=== PATIENT | male | born 1970 | race Caucasian/White ===

== ENCOUNTER → 2021-12-30 | Outpatient (CLI) | payer OTHER ==
[~2021-12-30] MED LIST: ALLO100 PO; ALLO300 PO; LISHYD2025 PO; LISI5 PO; Lovastatin20 MG PO; OXYACE5T PO
== END | disposition home or self-care (01) ==
LOC: LAB SHORT 11:12 → PLD 11:12
DX: L30.8 Other specified dermatitis (principal)
CPT/HCPCS: 88305; 88312

== ENCOUNTER 2022-02-26 07:49 | Day surgery (SDC) | payer OTHER ==
[2022-02-26] MEDS ORDERED: LISI20 PO (08:41)
[2022-02-26] MEDS ORDERED: DOXYCYCLINE HY100 M1 PO (08:43)
[2022-02-26] MEDS ORDERED: AMLODIPINE BESYL5 MG PO (08:43)
[2022-02-26] MEDS ORDERED: Metronidazole T45 GM TOP (08:44)
[2022-02-26] MEDS ORDERED: Protopic100 G1 TOP (08:45)
== END 2022-02-26 11:38 | disposition home or self-care (01) ==
LOC: ATC 07:49
DX: D58.2 Other hemoglobinopathies (principal); R79.9 Abnormal finding of blood chemistry, unspecified; I10 Essential (primary) hypertension; E78.5 Hyperlipidemia, unspecified
CPT/HCPCS: 36415; 36430; 86850; 86870; 86900; 86901; 86902; 86905; 86922; J7040; P9016

== ENCOUNTER → 2023-03-03 | Outpatient (CLI) | payer OTHER ==
[~2023-03-03] MED LIST changes: +AMLODIPINE BESYL5 MG PO; +DOXYCYCLINE HY100 M1 PO; +LISI20 PO; +Metronidazole T45 GM TOP; +Protopic100 G1 TOP
[2023-03-03 14:50] LABS: Stool Occult Bld Immuno 1 Negative (NEGATIVE)
== END | disposition home or self-care (01) ==
LOC: LAB 09:58 → LAB SHORT 09:58
PROVIDERS: Family Medicine
DX: Z12.11 Encounter for screening for malignant neoplasm of colon (principal); D51.0 Vitamin B12 deficiency anemia due to intrinsic factor deficiency; R79.9 Abnormal finding of blood chemistry, unspecified
CPT/HCPCS: G0328

== ENCOUNTER 2024-06-18 14:41 | Day surgery (SDC) | payer OTHER | END 2024-06-18 23:00 | disposition home or self-care (01) | LOC: US 14:41 | DX: K70.31 Alcoholic cirrhosis of liver with ascites (principal); F10.20 Alcohol dependence, uncomplicated; I10 Essential (primary) hypertension; E78.5 Hyperlipidemia, unspecified; K76.0 Fatty (change of) liver, not elsewhere classified; G47.00 Insomnia, unspecified; Z79.899 Other long term (current) drug therapy; Z88.5 Allergy status to narcotic agent; Z88.8 Allergy status to other drugs, medicaments and biological substances | CPT/HCPCS: 49083 ==

== ENCOUNTER 2024-06-25 08:43 | Day surgery (SDC) | payer OTHER | END 2024-06-25 23:00 | disposition home or self-care (01) | LOC: US 08:43 | DX: K70.31 Alcoholic cirrhosis of liver with ascites (principal); R63.4 Abnormal weight loss; I10 Essential (primary) hypertension; E78.5 Hyperlipidemia, unspecified | CPT/HCPCS: 49083 ==

== ENCOUNTER 2024-07-02 14:55 | Day surgery (SDC) | payer OTHER | END 2024-07-02 23:00 | disposition home or self-care (01) | LOC: US 14:55 | DX: K70.31 Alcoholic cirrhosis of liver with ascites (principal); K76.0 Fatty (change of) liver, not elsewhere classified; I10 Essential (primary) hypertension; E78.5 Hyperlipidemia, unspecified; F10.20 Alcohol dependence, uncomplicated; Z79.899 Other long term (current) drug therapy; Z88.5 Allergy status to narcotic agent; Z88.8 Allergy status to other drugs, medicaments and biological substances | CPT/HCPCS: 49083 ==

== ENCOUNTER 2024-07-16 14:50 | Day surgery (SDC) | payer OTHER | END 2024-07-16 23:22 | disposition home or self-care (01) | LOC: US 14:50 | DX: K70.31 Alcoholic cirrhosis of liver with ascites (principal); R63.4 Abnormal weight loss | CPT/HCPCS: 49083 ==

== ENCOUNTER 2024-07-22 09:48 | Day surgery (SDC) | payer OTHER | END 2024-07-22 23:00 | disposition home or self-care (01) | LOC: US 09:48 | DX: K74.60 Unspecified cirrhosis of liver (principal); R18.8 Other ascites; R63.4 Abnormal weight loss | CPT/HCPCS: 49083 ==

== ENCOUNTER 2024-07-30 09:42 | Day surgery (SDC) | payer OTHER | END 2024-07-30 23:00 | disposition home or self-care (01) | LOC: US 09:42 | DX: K70.31 Alcoholic cirrhosis of liver with ascites (principal); I10 Essential (primary) hypertension; E78.00 Pure hypercholesterolemia, unspecified; Z79.899 Other long term (current) drug therapy; Z88.5 Allergy status to narcotic agent | CPT/HCPCS: 49083 ==

== ENCOUNTER 2024-08-06 09:42 | Day surgery (SDC) | payer OTHER | END 2024-08-06 23:00 | disposition home or self-care (01) | LOC: US 09:42 | DX: K70.31 Alcoholic cirrhosis of liver with ascites (principal); I10 Essential (primary) hypertension; E78.5 Hyperlipidemia, unspecified; K76.0 Fatty (change of) liver, not elsewhere classified; Z79.899 Other long term (current) drug therapy; Z88.5 Allergy status to narcotic agent; Z88.8 Allergy status to other drugs, medicaments and biological substances | CPT/HCPCS: 49083 ==

== ENCOUNTER 2024-08-13 09:46 | Day surgery (SDC) | payer OTHER | END 2024-08-14 23:00 | disposition home or self-care (01) | LOC: US 09:46 | DX: K70.31 Alcoholic cirrhosis of liver with ascites (principal) | CPT/HCPCS: 49083 ==

== ENCOUNTER 2024-08-20 09:53 | Day surgery (SDC) | payer OTHER | END 2024-08-20 23:00 | disposition home or self-care (01) | LOC: US 09:53 | DX: K70.31 Alcoholic cirrhosis of liver with ascites (principal); F10.988 Alcohol use, unspecified with other alcohol-induced disorder; I10 Essential (primary) hypertension; E78.5 Hyperlipidemia, unspecified; Z79.899 Other long term (current) drug therapy; Z88.5 Allergy status to narcotic agent | CPT/HCPCS: 49083 ==

== ENCOUNTER 2024-08-30 11:06 | Day surgery (SDC) | payer OTHER | END 2024-08-30 23:00 | disposition home or self-care (01) | LOC: US 11:06 | DX: K70.31 Alcoholic cirrhosis of liver with ascites (principal); I10 Essential (primary) hypertension; E78.5 Hyperlipidemia, unspecified; Z79.899 Other long term (current) drug therapy; Z88.5 Allergy status to narcotic agent; Z88.8 Allergy status to other drugs, medicaments and biological substances | CPT/HCPCS: 49083 ==

== ENCOUNTER 2024-09-03 08:44 | Day surgery (SDC) | payer OTHER | END 2024-09-03 23:00 | disposition home or self-care (01) | LOC: US 08:44 | DX: K70.31 Alcoholic cirrhosis of liver with ascites (principal); R63.4 Abnormal weight loss | CPT/HCPCS: 49083 ==

== ENCOUNTER → 2024-09-11 | Day surgery (SDC) | payer OTHER | LOC: US 09-10 09:00 | DX: K70.31 Alcoholic cirrhosis of liver with ascites (principal) | CPT/HCPCS: 49083 ==

== ENCOUNTER 2024-09-17 08:51 | Day surgery (SDC) | payer OTHER | END 2024-09-17 23:00 | disposition home or self-care (01) | LOC: US 08:51 | DX: K70.31 Alcoholic cirrhosis of liver with ascites (principal); R63.4 Abnormal weight loss; I10 Essential (primary) hypertension; E78.00 Pure hypercholesterolemia, unspecified | CPT/HCPCS: 49083 ==

== ENCOUNTER 2024-09-23 08:51 | Day surgery (SDC) | payer OTHER | END 2024-09-23 23:00 | disposition home or self-care (01) | LOC: US 08:51 | DX: K74.60 Unspecified cirrhosis of liver (principal); R18.8 Other ascites | CPT/HCPCS: 49083 ==

== ENCOUNTER 2024-10-01 08:51 | Day surgery (SDC) | payer OTHER | END 2024-10-01 23:00 | disposition home or self-care (01) | LOC: US 08:51 | DX: K70.31 Alcoholic cirrhosis of liver with ascites (principal); I10 Essential (primary) hypertension; D64.9 Anemia, unspecified; M10.9 Gout, unspecified; E78.00 Pure hypercholesterolemia, unspecified; Z88.5 Allergy status to narcotic agent; Z79.899 Other long term (current) drug therapy | CPT/HCPCS: 49083 ==

== ENCOUNTER 2024-10-15 09:08 | Day surgery (SDC) | payer OTHER | END 2024-10-15 23:00 | disposition home or self-care (01) | LOC: US 09:08 | DX: K70.31 Alcoholic cirrhosis of liver with ascites (principal); F10.20 Alcohol dependence, uncomplicated; I10 Essential (primary) hypertension; E78.00 Pure hypercholesterolemia, unspecified; G47.00 Insomnia, unspecified; Z79.899 Other long term (current) drug therapy; Z88.5 Allergy status to narcotic agent; Z88.8 Allergy status to other drugs, medicaments and biological substances | CPT/HCPCS: 49083 ==

== ENCOUNTER 2024-10-28 10:51 | Day surgery (SDC) | payer OTHER | END 2024-10-28 23:00 | disposition home or self-care (01) | LOC: US 10:51 | DX: K74.60 Unspecified cirrhosis of liver (principal); R18.8 Other ascites; R63.4 Abnormal weight loss; Z88.5 Allergy status to narcotic agent | CPT/HCPCS: 49083 ==

== ENCOUNTER 2024-11-06 08:36 | Day surgery (SDC) | payer OTHER | END 2024-11-06 23:00 | disposition home or self-care (01) | LOC: US 08:36 | DX: K70.31 Alcoholic cirrhosis of liver with ascites (principal); R63.4 Abnormal weight loss; E78.5 Hyperlipidemia, unspecified; I10 Essential (primary) hypertension; M10.9 Gout, unspecified; E78.00 Pure hypercholesterolemia, unspecified; Z88.5 Allergy status to narcotic agent | CPT/HCPCS: 49083 ==

== ENCOUNTER 2024-11-12 08:37 | Day surgery (SDC) | payer OTHER | END 2024-11-12 22:58 | disposition home or self-care (01) | LOC: US 08:37 | DX: K70.31 Alcoholic cirrhosis of liver with ascites (principal) | CPT/HCPCS: 49083 ==

== ENCOUNTER 2024-11-19 14:59 | Day surgery (SDC) | payer OTHER | END 2024-11-19 23:00 | disposition home or self-care (01) | LOC: US 14:59 | DX: K70.31 Alcoholic cirrhosis of liver with ascites (principal); F10.20 Alcohol dependence, uncomplicated; I10 Essential (primary) hypertension; D64.9 Anemia, unspecified; M10.9 Gout, unspecified; E78.00 Pure hypercholesterolemia, unspecified; Z79.899 Other long term (current) drug therapy; Z88.5 Allergy status to narcotic agent | CPT/HCPCS: 49083 ==

== ENCOUNTER → 2024-11-26 | Day surgery (SDC) | payer OTHER | LOC: US 08:51 | DX: K70.31 Alcoholic cirrhosis of liver with ascites (principal) | CPT/HCPCS: 49083 ==

== ENCOUNTER 2024-12-03 09:08 | Day surgery (SDC) | payer OTHER | END 2024-12-03 22:46 | disposition home or self-care (01) | LOC: US 09:08 | DX: K70.31 Alcoholic cirrhosis of liver with ascites (principal); R63.4 Abnormal weight loss; Z88.5 Allergy status to narcotic agent | CPT/HCPCS: 49083 ==

== ENCOUNTER → 2024-12-10 | Day surgery (SDC) | payer OTHER | LOC: US 09:00 | DX: K70.31 Alcoholic cirrhosis of liver with ascites (principal); R63.4 Abnormal weight loss; Z88.5 Allergy status to narcotic agent | CPT/HCPCS: 49083 ==

== ENCOUNTER 2024-12-18 08:36 | Day surgery (SDC) | payer OTHER | END 2024-12-18 23:00 | disposition home or self-care (01) | LOC: US 08:36 | DX: K70.31 Alcoholic cirrhosis of liver with ascites (principal); R63.4 Abnormal weight loss | CPT/HCPCS: 49083 ==

== ENCOUNTER 2024-12-25 08:44 | Day surgery (SDC) | payer OTHER | END 2024-12-25 23:00 | disposition home or self-care (01) | LOC: US 08:44 | DX: K74.60 Unspecified cirrhosis of liver (principal); R18.8 Other ascites; R63.4 Abnormal weight loss; Z88.5 Allergy status to narcotic agent | CPT/HCPCS: 49083 ==

== ENCOUNTER 2024-12-31 08:46 | Day surgery (SDC) | payer OTHER | END 2024-12-31 23:39 | disposition home or self-care (01) | LOC: US 08:46 | DX: R18.8 Other ascites (principal); K74.60 Unspecified cirrhosis of liver; R63.4 Abnormal weight loss; Z88.5 Allergy status to narcotic agent | CPT/HCPCS: 49083 ==

== ENCOUNTER 2025-01-28 08:58 | Day surgery (SDC) | payer OTHER | END 2025-01-28 22:00 | disposition home or self-care (01) | LOC: US 08:58 | DX: R18.8 Other ascites (principal) | CPT/HCPCS: 49083 ==

== ENCOUNTER 2025-02-18 09:51 | Day surgery (SDC) | payer OTHER | END 2025-02-18 23:00 | disposition home or self-care (01) | LOC: US 09:51 | DX: K70.31 Alcoholic cirrhosis of liver with ascites (principal); R63.4 Abnormal weight loss; Z68.27 Body mass index [BMI] 27.0-27.9, adult; Z88.5 Allergy status to narcotic agent | CPT/HCPCS: 49083 ==

== ENCOUNTER 2025-02-25 08:51 | Day surgery (SDC) | payer OTHER | END 2025-02-25 22:00 | disposition home or self-care (01) | LOC: US 08:51 | DX: R18.8 Other ascites (principal); K74.60 Unspecified cirrhosis of liver; R63.4 Abnormal weight loss; Z88.5 Allergy status to narcotic agent | CPT/HCPCS: 49083 ==

== ENCOUNTER 2025-03-04 09:54 | Day surgery (SDC) | payer OTHER | END 2025-03-04 23:00 | disposition home or self-care (01) | LOC: US 09:54 | DX: K70.31 Alcoholic cirrhosis of liver with ascites (principal); R63.4 Abnormal weight loss; Z88.5 Allergy status to narcotic agent; Z68.27 Body mass index [BMI] 27.0-27.9, adult | CPT/HCPCS: 49083 ==

== ENCOUNTER 2025-03-11 09:54 | Day surgery (SDC) | payer OTHER | END 2025-03-11 23:06 | disposition home or self-care (01) | LOC: US 09:54 | DX: R18.8 Other ascites (principal); K74.60 Unspecified cirrhosis of liver | CPT/HCPCS: 49083 ==

== ENCOUNTER 2025-03-18 08:58 | Day surgery (SDC) | payer OTHER | END 2025-03-18 23:00 | disposition home or self-care (01) | LOC: US 08:58 | DX: K74.60 Unspecified cirrhosis of liver (principal); R18.8 Other ascites; Z79.899 Other long term (current) drug therapy | CPT/HCPCS: 49083 ==

== ENCOUNTER 2025-03-25 08:41 | Day surgery (SDC) | payer OTHER | END 2025-03-25 23:00 | disposition home or self-care (01) | LOC: US 08:41 | DX: K70.31 Alcoholic cirrhosis of liver with ascites (principal); F10.20 Alcohol dependence, uncomplicated; E78.5 Hyperlipidemia, unspecified; Z88.5 Allergy status to narcotic agent | CPT/HCPCS: 49083 ==

== ENCOUNTER → 2025-04-01 | Day surgery (SDC) | payer OTHER | LOC: US 10:45 | DX: K70.31 Alcoholic cirrhosis of liver with ascites (principal); R63.4 Abnormal weight loss; Z88.5 Allergy status to narcotic agent; Z88.6 Allergy status to analgesic agent | CPT/HCPCS: 49083 ==

== ENCOUNTER 2025-04-08 08:46 | Day surgery (SDC) | payer OTHER | END 2025-04-08 23:00 | disposition home or self-care (01) | LOC: US 08:46 | DX: K70.31 Alcoholic cirrhosis of liver with ascites (principal); F10.20 Alcohol dependence, uncomplicated; I10 Essential (primary) hypertension; E78.5 Hyperlipidemia, unspecified; Z79.899 Other long term (current) drug therapy; Z88.5 Allergy status to narcotic agent; Z88.8 Allergy status to other drugs, medicaments and biological substances | CPT/HCPCS: 49083 ==

== ENCOUNTER 2025-04-15 08:49 | Day surgery (SDC) | payer OTHER | END 2025-04-15 23:00 | disposition home or self-care (01) | LOC: US 08:49 | DX: K70.31 Alcoholic cirrhosis of liver with ascites (principal); F10.20 Alcohol dependence, uncomplicated; E78.5 Hyperlipidemia, unspecified; I10 Essential (primary) hypertension; K76.0 Fatty (change of) liver, not elsewhere classified; Z88.5 Allergy status to narcotic agent; Z79.899 Other long term (current) drug therapy | CPT/HCPCS: 49083 ==

== ENCOUNTER 2025-04-22 08:48 | Day surgery (SDC) | payer OTHER | END 2025-04-22 23:00 | disposition home or self-care (01) | LOC: US 08:48 | DX: K70.31 Alcoholic cirrhosis of liver with ascites (principal); R63.4 Abnormal weight loss; E78.5 Hyperlipidemia, unspecified; I10 Essential (primary) hypertension; Z68.26 Body mass index [BMI] 26.0-26.9, adult; Z79.899 Other long term (current) drug therapy; Z88.5 Allergy status to narcotic agent | CPT/HCPCS: 49083 ==

== ENCOUNTER 2025-05-06 08:52 | Day surgery (SDC) | payer OTHER | END 2025-05-06 23:00 | disposition home or self-care (01) | LOC: US 08:52 | DX: K70.31 Alcoholic cirrhosis of liver with ascites (principal); F10.20 Alcohol dependence, uncomplicated; I10 Essential (primary) hypertension; E78.5 Hyperlipidemia, unspecified; G47.00 Insomnia, unspecified; Z79.899 Other long term (current) drug therapy; Z88.5 Allergy status to narcotic agent; Z88.8 Allergy status to other drugs, medicaments and biological substances | CPT/HCPCS: 49083 ==

== ENCOUNTER 2025-05-13 08:55 | Day surgery (SDC) | payer OTHER | END 2025-05-13 23:00 | disposition home or self-care (01) | LOC: US 08:55 | DX: K74.60 Unspecified cirrhosis of liver (principal); R18.8 Other ascites | CPT/HCPCS: 49083 ==

== ENCOUNTER 2025-05-20 08:42 | Day surgery (SDC) | payer OTHER | END 2025-05-20 22:00 | disposition home or self-care (01) | LOC: US 08:42 | DX: K74.60 Unspecified cirrhosis of liver (principal); R18.8 Other ascites; Z88.5 Allergy status to narcotic agent | CPT/HCPCS: 49083 ==

== ENCOUNTER 2025-05-27 08:45 | Day surgery (SDC) | payer OTHER | END 2025-05-27 23:00 | disposition home or self-care (01) | LOC: US 08:45 | DX: K70.31 Alcoholic cirrhosis of liver with ascites (principal); F10.20 Alcohol dependence, uncomplicated; D50.9 Iron deficiency anemia, unspecified; I10 Essential (primary) hypertension; E78.00 Pure hypercholesterolemia, unspecified; Z86.0100 Personal history of colon polyps, unspecified; Z79.899 Other long term (current) drug therapy; Z88.5 Allergy status to narcotic agent | CPT/HCPCS: 49083 ==

== ENCOUNTER 2025-06-03 08:46 | Day surgery (SDC) | payer OTHER | END 2025-06-03 23:00 | disposition home or self-care (01) | LOC: US 08:46 | DX: K74.60 Unspecified cirrhosis of liver (principal); R18.8 Other ascites | CPT/HCPCS: 49083 ==

== ENCOUNTER 2025-06-10 08:56 | Day surgery (SDC) | payer OTHER | END 2025-06-10 23:00 | disposition home or self-care (01) | LOC: US 08:56 | DX: K74.60 Unspecified cirrhosis of liver (principal); R18.8 Other ascites | CPT/HCPCS: 49083 ==

== ENCOUNTER 2025-06-17 08:34 | Day surgery (SDC) | payer OTHER | END 2025-06-17 22:46 | disposition home or self-care (01) | LOC: US 08:34 | DX: K74.60 Unspecified cirrhosis of liver (principal); R18.8 Other ascites | CPT/HCPCS: 49083 ==

== ENCOUNTER 2025-06-24 08:49 | Day surgery (SDC) | payer OTHER | END 2025-06-24 23:00 | disposition home or self-care (01) | LOC: US 08:49 | DX: K74.60 Unspecified cirrhosis of liver (principal); R18.8 Other ascites | CPT/HCPCS: 49083 ==

== ENCOUNTER 2025-07-01 08:39 | Day surgery (SDC) | payer OTHER | END 2025-07-01 22:47 | disposition home or self-care (01) | LOC: US 08:39 | DX: K74.60 Unspecified cirrhosis of liver (principal); R18.8 Other ascites | CPT/HCPCS: 49083 ==

== ENCOUNTER 2025-07-08 08:44 | Day surgery (SDC) | payer OTHER | END 2025-07-08 22:57 | disposition home or self-care (01) | LOC: US 08:44 | DX: K74.60 Unspecified cirrhosis of liver (principal); R18.8 Other ascites | CPT/HCPCS: 49083 ==

== ENCOUNTER 2025-07-15 07:52 | Day surgery (SDC) | payer OTHER | END 2025-07-15 22:00 | disposition home or self-care (01) | LOC: US 07:52 | DX: K70.31 Alcoholic cirrhosis of liver with ascites (principal); F10.20 Alcohol dependence, uncomplicated; I10 Essential (primary) hypertension; E78.00 Pure hypercholesterolemia, unspecified; D50.9 Iron deficiency anemia, unspecified; Z88.5 Allergy status to narcotic agent; Z79.899 Other long term (current) drug therapy | CPT/HCPCS: 49083; 74170; Q9967 ==